=== PATIENT | female | born 1995 | race Caucasian/White ===

== ENCOUNTER 2018-08-19 16:38 | Emergency (ER) | payer OTHER ==
--- NOTE | 2018-08-19 17:36 | EDPHY ---
H & P Stated Complaint: choked on med and passed out sat night/may have hit head/matthew/ feels off Time Seen by Provider: 08/19/18 17:06 HPI/ROS: CHIEF COMPLAINT: Head injury 2 days ago HISTORY OF PRESENT ILLNESS: 23-year-old female via private vehicle complaining of headache, nausea, difficulty concentrating after head injury 2 days ago. She describes taking her nighttime acne medication which she describes as a "large pill". She remembers swallowing the pill and then remembers waking up on the floor of her kitchen with her dogs licking her. Friends were at her side shortly thereafter. Did describe a brief period of confusion. No oral trauma. No vomiting. No incontinence. No history of similar. No antecedent chest pain, dyspnea, headache or other symptoms. REVIEW OF SYSTEMS: 10 systems reviewed and negative with the exception of the elements mentioned in the history of present illness PAST MEDICAL/SURGICAL HISTORY: Acne. SOCIAL HISTORY: denies alcohol use at time of incident PHYSICAL EXAM 1) GENERAL: Well-developed, well-nourished, alert and oriented. Appears to be in no acute distress. Answering questions appropriately. 2) HEAD: Normocephalic, tender to palpation occiput with noted hematoma. 3) HEENT: Pupils equal, round, reactive to light bilaterally. Negative [place]. Nasopharynx, oropharynx, clear. No deformity or angulation of nose. No septal hematoma. No rhinorrhea. No oral trauma. Ears bilaterally with normal tympanic membranes. No hemotympanum. No fluid or blood in the external auditory canal. No raccoon eyes. No Robb sign. Teeth are normally aligned with no gross malocclusion, TMJ bilaterally nontender, facial bones nontender including the zygomatic arch, maxilla mandible. 4) NECK: No cervical collar is on. Posterior cervical spine is nontender, no stepoff, no effusion. Full range of motion which does not elicit any midline cervical spine pain, no posterior midline tenderness, no step-off. 5) LUNGS: Clear to auscultation bilaterally, no wheezes, no rhonchi, no retractions. No obvious signs of trauma. No chest wall pain. No flaring, no grunting. Moving symmetrically. No crepitus. 6) HEART: [Regular rate and rhythm, 7) ABDOMEN: No guarding, no rebound, no focal tenderness, no peritoneal signs, no signs of trauma, no ecchymosis 8) MUSCULOSKELETAL: Moving all extremities, no focal areas of tenderness, no obvious trauma. 9) BACK: No midline vertebral tenderness, no fluctuance, no step-off, no obvious trauma, no visual or palpable abnormality. 10) SKIN: No laceration. No abrasion 11) NEURO: Awake, alert, and oriented to person, place and time. Answers questions appropriately. There were no obvious focal neurologic abnormalities. No cerebellar dysfunction. Cranial nerves 2 through to 12 intact. Normal steady gait. Upper and lower extremities bilaterally with strength 5 / 5, reflexes 2+. DIFFERENTIAL DIAGNOSIS: Not necessarily in any particular order, my differential diagnosis includes, but is not limited to, arrhythmia, syncope from choking, concussion, skull fracture, intraparenchymal contusion, subarachnoid, subdural and epidural hematoma. The patient understands that this diagnosis is provisional and can never be 100% accurate. - Personal History LMP (Females 10-55): 1-7 Days Ago Current Tetanus Diphtheria and Acellular Pertussis (TDAP): Yes - Medical/Surgical History Hx Asthma: No Hx Chronic Respiratory Disease: No Hx Diabetes: No Hx Cardiac Disease: No Hx Renal Disease: No Hx Cirrhosis: No Hx Alcoholism: No Hx HIV/AIDS: No Hx Splenectomy or Spleen Trauma: No Other PMH: acne - Social History Smoking Status: Never smoked Constitutional: Initial Vital Signs Temperature (C) 36.8 C 08/19/18 16:45 Heart Rate 72 08/19/18 16:45 Respiratory Rate 18 08/19/18 16:45 Blood Pressure 144/96 H 08/19/18 16:45 O2 Sat (%) 99 08/19/18 16:45 O2 Delivery Mode Room Air Allergies/Adverse Reactions: No Known Allergies Allergy (Unverified 08/19/18 16:44) Home Medications: Medication Instructions Recorded Acne Medication 08/19/18 [place] 08/19/18 Medical Decision Making - Diagnostics Imaging Results: Imaging Impressions Head CT 08/19/18 17:20 Impression: No acute intracranial findings. Findings discussed with Vernon Black 08/19/2018 at 18:50. ED Course/Re-evaluation: 6:51 p.m.: CT head interpreted by staff radiologist negative for posttraumatic sequelae with images reviewed myself 655 pm: Patient re-evaluated. Discussed her imaging results. She remains with a nonfocal exam. She has no complaints of chest pain, dyspnea, dysphagia, odynophagia. We discussed possible etiologies for syncopal episode 2 days ago. At this time I think the patient can be discharged home. I do not think that further diagnostic studies are indicated. I have given her my usual and customary head injury precautions instructions and follow-up information. She feels comfortable being discharged. I saw this patient independently based on established practice protocols. Care of patient under supervision of secondary supervising physician Dr Gonzalez . - Data Points Laboratory Results: Laboratory Results 08/19/18 17:36 08/19/18 17:36 08/19/18 08/19/18 08/19/18 17:36 17:36 17:36 WBC 6.65 10^3/uL 10^3/uL (3.80-9.50) RBC 4.70 10^6/uL 10^6/uL (4.18-5.33) Hgb 14.6 g/dL g/dL (12.6-16.3) Hct 44.3 % % (38.0-47.0) MCV 94.3 fL fL (81.5-99.8) MCH 31.1 pg pg (27.9-34.1) MCHC 33.0 g/dL g/dL (32.4-36.7) RDW 13.4 % % (11.5-15.2) Plt Count 356 10^3/uL 10^3/uL (150-400) MPV 9.5 fL fL (8.7-11.7) Neut % (Auto) 48.3 % % (39.3-74.2) Lymph % (Auto) 42.4 % % (15.0-45.0) [place] % (Auto) 7.1 % % (4.5-13.0) Eos % (Auto) 1.1 % % (0.6-7.6) Baso % (Auto) 0.8 % % (0.3-1.7) Nucleat RBC Rel Count 0.0 % % (0.0-0.2) Absolute Neuts (auto) 3.22 10^3/uL 10^3/uL (1.70-6.50) Absolute Lymphs (auto) 2.82 10^3/uL 10^3/uL (1.00-3.00) Absolute Monos (auto) 0.47 10^3/uL 10^3/uL (0.30-0.80) Absolute Eos (auto) 0.07 10^3/uL 10^3/uL (0.03-0.40) Absolute Basos (auto) 0.05 10^3/uL 10^3/uL (0.02-0.10) Absolute Nucleated RBC 0.00 10^3/uL 10^3/uL (0-0.01) Immature Gran % 0.3 % % (0.0-1.1) Immature Gran # 0.02 10^3/uL 10^3/uL (0.00-0.10) Sodium 139 mEq/L mEq/L (135-145) Potassium 4.4 mEq/L mEq/L (3.3-5.0) Chloride 101 mEq/L mEq/L (97-110) Carbon Dioxide 27 mEq/l mEq/l (22-31) Anion Gap 11 mEq/L mEq/L (6-14) BUN 18 mg/dL mg/dL (7-23) Creatinine 0.8 mg/dL mg/dL (0.6-1.0) Estimated GFR > 60 Glucose 88 mg/dL mg/dL (70-100) Calcium 9.9 mg/dL mg/dL (8.5-10.4) Beta HCG, Qual NEGATIVE Departure - Departure Disposition: Home, Routine, Self-Care Clinical Impression: Head injury due to trauma Qualifiers: Encounter type: initial encounter Qualified Code(s): S09.90XA - Unspecified injury of head, initial encounter Condition: Good Instructions: Head Injury (ED) Additional Instructions: ALTHOUGH THERE IS NO EVIDENCE OF SERIOUS HEAD INJURY AT THIS TIME, DELAYED SIGNS CAN APPEAR 24 TO 48 HOURS AFTER INJURY. PLEASE RETURN TO THE EMERGENCY DEPARTMENT (ED) IMMEDIATELY IF YOU HAVE INCREASED HEADACHE, PERSISTENT HEADACHE , VOMITING, WEAKNESS, CONFUSION OR VISUAL PROBLEMS. WE RECOMMEND THAT YOU DO NOT RESUME CONTACT SPORTS OR ACTIVITIES THAT TAKE COORDINATION OR BALANCE SUCH SKIING OR RIDING A BICYCLE UNTIL CLEARED TO DO SO BY YOUR DOCTOR OR BY A NEUROLOGIST. Referrals: Ann Guardado MD [Medical Doctor] - 2-3 days, call for appt.
[2018-08-19 17:53] LABS: PLATELET COUNT 356 10^3/uL (150-400)
[2018-08-19 19:12] VITALS: BP 113/75
--- NOTE | 2018-08-20 04:11 | CPEKG ---
Test Reason : OPEN Blood Pressure : / mmHG Vent. Rate : 067 BPM Atrial Rate : 060 BPM P-R Int : 121 ms QRS Dur : 092 ms QT Int : 390 ms P-R-T Axes : 061 083 036 degrees QTc Int : 412 ms Sinus arrhythmia Confirmed by Cesilia Quiñones ([id number]) on 08/20/2018 4:10:36 AM Referred By: Confirmed By:Cesilia Quiñones
== END 2018-08-19 19:11 | disposition home or self-care (01) ==
DX: R55 Syncope and collapse (principal); R51 Headache